=== PATIENT | male | born 1990 | race Hispanic/Latino ===

== ENCOUNTER 2016-12-02 17:13 | Emergency (ER) | payer OTHER ==
[~2016-12-02] VITALS: Ht 172.7 cm; Wt 63.6 kg
[~2016-12-02 17:13] MED LIST: ONDA4TAB9 PO
[2016-12-02 17:15] VITALS: BP 138/72; PULSE 88; RESP 20; O2SAT 98
--- NOTE | 2016-12-02 18:06 | ED.REPORT ---
HPI-General Illness Date of Service Dec 02, 2016 ED Provider: Vinh Montiel DO Pt is a 26 y.o. male who presents to the ED c/o nausea after ingesting E-vape liquid prior to arrival. Pt states that he was using the vape pen to smoke and it leaked into his mouth. He states that he had less than a dropper full of liquid. He denies vomiting. Nursing Notes Stated Complaint: SWALLOWED E-VAP LIQUID Chief Complaint: General Complaint Nursing Notes Reviewed: Yes Allergies: Coded Allergies: No Known Allergies (Verified Allergy, Unknown, 03/28/14) Scheduled PRN Ondansetron ODT (Zofran ODT) 4 Mg Tablet 4 MG PO Q4H PRN PRN For Nausea General Time Seen by MD: 18:04 Chief Complaint Other (Nausea) Hx Obtained From: Patient Arrived By: Walk-in Sudden in Onset?: Yes Onset Occurred: Just prior to arrival Symptom Duration: Since onset Caused by: Accidental Severity: Current: No pain currently Past Medical History Past Medical History Denies Past Surgical History Tonsillectomy Smoking History Former Smoker Social History Alcohol Use: "Social" Drug Use: Other Ambulatory Status Independent Review of Systems Full Review of Systems GI: Reports: Nausea, Denies: Vomiting Physical Exam Vital Signs Vital Signs Date Time Temp Pulse Resp B/P Pulse Ox O2 Delivery O2 Flow Rate FiO2 12/02/16 18:44 36.4 88 20 138/72 98 12/02/16 17:15 36.4 88 20 138/72 98 Initial VS: Reviewed Abdomen / GI: No distention Extremities: Vascular intact, Neuro intact Skin: Warm, Dry, No cyanosis Psychiatric: Mood/affect normal, Behavior normal, Normal thought content General/Constitutional: Awake, Alert, No acute distress, Well appearing, Well developed, Well hydrated, Well nourished, Not toxic appearing Head / Eyes: Atraumatic, Normocephalic Respiratory / Chest: Atraumatic, Breath sounds NL, No respiratory distress Cardiovascular: Heart rate NL, Regular rhythm, Peripheral circulation NL Neurologic: Oriented X3, Speech NL, CN II - XII intact Re-Eval/Medical Decision Med Decision/Clinical Course No signs of nicotine toxicity on examination. Case discussed with poison control. They state that it is a non-toxic ingestion and they recommend no other intervention or observation.. Source of Hx: Old records Time of Eval: 18:42 Re-Evaluation/Progress Note: Pt rechecked. Discussed consult with poison control and plan for discharge. Pt understands and agrees with plan. Consultation : Call Returned at: 18:30 Note: Consulted with poison control. They say this is a non-toxic ingestion and do not recommend any further intervention. Counseled Regarding: Diagnosis Discharge & Departure Primary Impression: Toxic effect of other tobacco and nicotine, accidental (unintentional), initial encounter Disposition: Home Discharge Condition All VS Reviewed: Yes Condition: Stable Additional Instructions: You were seen today for nicotine ingestion. I spoke to poison control and they say this is a non-toxic ingestion. Avoid nicotine products for the next 24 hours. Follow-up with your primary care provider and seek care if you experience any vomiting or new or worsening products. Referrals: [facility] (PCP) [facility] Enrique Attestation Portions of this note were transcribed by Navya Duffy. I, Dr. Montiel personally performed the history, physical exam and medical decision-making; I reviewed and confirmed the accuracy of the information in the transcribed note. Signed by : Enrique Clay, 12/02/16 and 1844. copies to: [facility] Vinh Montiel DO Dec 02, 2016 18:06 NAVYA DUFFY Dec 02, 2016 18:26
[2016-12-02 18:44] VITALS: BP 138/72; PULSE 88; RESP 20; O2SAT 98
== END 2016-12-02 18:44 | disposition home or self-care (01) ==
LOC: SED 17:13
DX: T65.291A Toxic effect of other tobacco and nicotine, accidental (unintentional), initial encounter (principal); R11.0 Nausea; X58.XXXA Exposure to other specified factors, initial encounter; Y93.89 Activity, other specified; Y99.8 Other external cause status; Y92.9 Unspecified place or not applicable; F11.10 Opioid abuse, uncomplicated; F17.200 Nicotine dependence, unspecified, uncomplicated